=== PATIENT | female | born 1995 | race Caucasian/White ===

== ENCOUNTER 2021-07-28 16:55 | Emergency (ER) | payer OTHER, SELFPAY ==
--- NOTE | ~2021-07-28 | CT_ITS ---
EXAMINATION: CT ABDOMEN AND PELVIS WITH CONTRAST CLINICAL INFORMATION: Right lower quadrant pain. Rule out appendicitis. COMPARISON: None TECHNIQUE: Multidetector volumetric images were obtained from the superior aspect of the liver through the pubic symphysis following administration 85 mL of Omnipaque 350 intravenous contrast. Sagittal and coronal reformatted images were obtained on the technologist's workstation. Oral contrast: No This CT examination was performed using dose optimization techniques as appropriate, variously including the following: *Automated exposure control *Adjustment of mA and/or kV according to patient size (this includes techniques or standardized protocols for targeted exams where dose is matched to indication/reason for exam; i.e. extremities or head) *Use of iterative reconstruction technique DLP: 451 mGy-cm FINDINGS: LUNG BASES: The the lung bases are clear. LIVER, GALLBLADDER, AND BILIARY TREE: The liver is normal in size, shape, and attenuation. There is punctate 4 mm hypodensity in the right hepatic lobe. No additional lesions seen. There is no intrahepatic ductal dilatation. The gallbladder is unremarkable with no evidence of radiopaque gallstones, gallbladder wall thickening, or obvious pericholecystic inflammatory changes. PANCREAS: Unremarkable. SPLEEN: Unremarkable. ADRENAL GLANDS: Unremarkable. KIDNEYS AND URETERS: Both kidneys are normal size, shape and position. No radiopaque renal calculi, enhancing renal mass or hydronephrosis. No cysts seen either. BLADDER: The bladder is nondistended with mild wall thickening. GASTROINTESTINAL TRACT: There is moderate scattered stool seen in the colon without distention. The small bowel loops are normal caliber. Appendix is normal caliber . ABDOMINAL WALL: No significant hernia is appreciated. LYMPH NODES: Normal. VASCULAR: Unremarkable. PELVIC VISCERA: There is minimal free fluid in the pelvis. The uterus is anteverted with an IUD located within the endometrial canal. There is no adnexal mass. OSSEOUS STRUCTURES: No lytic or sclerotic process seen. CT/CT abdomen pelvis w con IMPRESSION: Moderate constipation. No obstruction. Normal appendix. Small amount of physiological fluid in the cul-de-sac. No adnexal mass seen.
[2021-07-28 19:01] VITALS: BP 114/65; PULSE 114; RESP 18; TEMP 36.9; O2SAT 99; BMI 22.0
--- NOTE | 2021-07-28 19:52 | PC.NURSE ---
IV established, labs and UA obtained. Awaiting primary MD eval.
--- NOTE | 2021-07-28 19:53 | PC.NURSE ---
at bedside for primary eval.
[2021-07-28 19:55] LABS: MANUAL DIFF FLAG NO
[2021-07-28 19:57] LABS: Appearance Urine HAZY; Basophils Absolute Auto 0.1 X10*3/uL (0.0-0.2); Basophils Percent Auto 0.6 % (0-2); Color Urine YELLOW; Eosinophils Absolute Auto 0.3 X10*3/uL (0.0-0.4); Eosinophils Percent Auto 2.8 % (0-4); Glucose Urine UA NEG (NEG); Hematocrit 39.8 % (37-47); Hemoglobin 12.6 g/dl (12.0-16.0); Imm Gran Abs Auto 0.05 X10*3/uL (0.00-0.03); Imm Gran Pct Auto 0.6 % (0.0-0.4); Leukocyte Esterase Urine NEG (NEG); Lymphocytes Absolute Auto 1.4 X10*3/uL (1.2-4.9); Lymphocytes Percent Auto 15.8 % (20-40); Mean Corpuscular HGB Conc 31.7 g/dl (31.0-35.0); Mean Corpuscular Hemoglobin 24.7 pg (27.0-33.0); Mean Platelet Volume 10.1 fL (9.4-12.3); Monocytes Absolute Auto 0.5 X10*3/uL (0.1-1.2); Monocytes Percent Auto 5.8 % (2-11); Neutrophils Absolute Auto 6.6 X10*3/uL (2.0-8.3); Neutrophils Percent Auto 74.4 % (45-73); Nitrite Urine NEG (NEG); Platelet Count 264 X10*3/uL (160-400); Red Cell Distribution Width 14.6 % (11.0-16.0); Specific Gravity - Urine >= 1.030 (1.005-1.025); UACC Culture Trigger NO; Urine Blood 2+ (NEG); Urine Ketones 15 MG/DL (NEG); Urine Protein 2+ MG/DL (NEG-TRACE); White Blood Count 8.9 X10*3/uL (4.8-10.8)
--- NOTE | 2021-07-28 19:58 | ED.ABDPAIN ---
HPI - Abdominal Pain General Chief Complaint: Abdominal Pain Stated Complaint: Stomach pain fever vomiting Time Seen by Provider: 07/28/21 19:50 Source: patient Mode of arrival: ambulatory Limitations: no limitations History of Present Illness HPI narrative: Patient with 3 days of lower abdominal pain radiating to her flanks. Worse on right than left. Positive nausea and vomiting. No diarrhea. Positive dysuria described as burning. No prior history of similar issues. No obvious fevers. No prior abdominal surgeries Pain is moderate to severe Related Data Previous Rx's Medication Instructions Recorded ondansetron HCl 4 mg tablet 4 mg PO Q8H PRN #10 tab 07/28/21 (Zofran) Allergies Allergy/AdvReac Type Severity Reaction Status Date / Time No Known Allergies Allergy Verified 07/28/21 18:58 [No Known Allergies*] Review of Systems Constitutional: Denies fever(s) Cardiovascular: Denies dyspnea Respiratory: Denies dyspnea Gastrointestinal: Reports abdominal pain Comments: Positive dysuria and frequency Musculoskeletal: Reports no additional musculoskeletal complaints Physical Exam Vital Signs: Vital Signs: Last Vital Signs Temp 102 F H 07/28/21 20:00 Pulse 97 07/28/21 20:00 Resp 20 07/28/21 20:00 BP 91/46 L 07/28/21 20:00 Pulse Ox 100 07/28/21 20:00 Body Mass Index 22.0 Const: General: cooperative, healthy appearing, comfortable and no acute distress Resp: Other: No respiratory distress GI: Other: Tender across the low abdomen. Specifically most tender in the suprapubic and right lower quadrant area. No flank tenderness to percussion. No guarding or rebound. Skin: Other: Warm pink and dry Neuro: Other: Awake alert oriented Course Course Course Narrative: Lower abdominal pain Urinary tract infection Ovarian cyst Appendicitis Ovarian torsion less likely IV fluids IV Toradol 9:27 p.m.. Patient is feeling much better after medication. CT scan shows no evidence of appendicitis or other significant abnormality. Urinalysis is normal. Lab work is normal. Final diagnosis will be gastroenteritis with dehydration MDM - Abdominal Pain Lab Data Result diagrams: 07/28/21 19:50 07/28/21 19:50 Labs: Lab Results 07/28/21 07/28/21 07/28/21 Range/Units 19:50 19:50 19:50 WBC 8.9 (4.8-10.8) X10*3/uL RBC 5.10 (4.20-5.50) X10*6/uL Hgb 12.6 (12.0-16.0) g/dl Hct 39.8 (37-47) % MCV 78.0 L (80-98) fL MCH 24.7 L (27.0-33.0) pg MCHC 31.7 (31.0-35.0) g/dl RDW 14.6 (11.0-16.0) % Plt Count 264 (160-400) X10*3/uL MPV 10.1 (9.4-12.3) fL Immature Gran % (Auto) 0.6 H (0.0-0.4) % Neut % (Auto) 74.4 H (45-73) % Lymph % (Auto) 15.8 L (20-40) % Barren % (Auto) 5.8 (2-11) % Eos % (Auto) 2.8 (0-4) % Baso % (Auto) 0.6 (0-2) % Lymph # (Auto) 1.4 (1.2-4.9) X10*3/uL Barren # (Auto) 0.5 (0.1-1.2) X10*3/uL Eos # (Auto) 0.3 (0.0-0.4) X10*3/uL Baso # (Auto) 0.1 (0.0-0.2) X10*3/uL Abs Immat Gran (auto) 0.05 H (0.00-0.03) X10*3/uL Absolute Neuts (auto) 6.6 (2.0-8.3) X10*3/uL Absolute Nucleated RBC 0.000 (0.0-0.012) X10*3/uL Nucleated RBC % (auto) 0.0 (0.0-0.2) /100WBC Sodium 136 (135-145) mmol/L Potassium 3.2 L (3.3-5.1) mmol/L Chloride 102 (96-108) mmol/L Carbon Dioxide 24 (22-29) mmol/L Anion Gap 13 (12-20) BUN 7 L (9-16) mg/dL Creatinine 0.90 (0.5-1.4) mg/dL Estim Creat Clear Calc 85.2 Estimated GFR > 60 Random Glucose 104 (60-115) mg/dL Calcium 8.8 (8.4-10.2) mg/dL Total Bilirubin 1.7 H (0.0-1.0) mg/dL AST 18 (5-31) U/L ALT 15 (0-31) U/L Alkaline Phosphatase 87 (39-117) U/L Total Protein 7.9 (6.5-8.0) g/dL Albumin 4.4 (3.5-5.0) g/dL Urine Color YELLOW Urine Appearance HAZY Urine pH 6.0 (5.0-8.0) Ur Specific [place] >= 1.030 H (1.005-1.025) Urine Protein 2+ H (NEG-TRACE) MG/DL Urine Glucose (UA) NEG (NEG) MG/DL Urine Ketones 15 (NEG) MG/DL Urine Blood 2+ H (NEG) Urine Nitrite NEG (NEG) Ur Leukocyte Esterase NEG (NEG) Urine RBC 0-2 (0) /HPF Urine WBC 0 (0-4) /HPF Ur Squamous Epith Cells 1+ /LPF Urine Bacteria 1+ /LPF Urine Mucus 1+ /LPF Urine Test (NEGATIVE) 07/28/21 Range/Units 19:50 WBC (4.8-10.8) X10*3/uL RBC (4.20-5.50) X10*6/uL Hgb (12.0-16.0) g/dl Hct (37-47) % MCV (80-98) fL MCH (27.0-33.0) pg MCHC (31.0-35.0) g/dl RDW (11.0-16.0) % Plt Count (160-400) X10*3/uL MPV (9.4-12.3) fL Immature Gran % (Auto) (0.0-0.4) % Neut % (Auto) (45-73) % Lymph % (Auto) (20-40) % Barren % (Auto) (2-11) % Eos % (Auto) (0-4) % Baso % (Auto) (0-2) % Lymph # (Auto) (1.2-4.9) X10*3/uL Barren # (Auto) (0.1-1.2) X10*3/uL Eos # (Auto) (0.0-0.4) X10*3/uL Baso # (Auto) (0.0-0.2) X10*3/uL Abs Immat Gran (auto) (0.00-0.03) X10*3/uL Absolute Neuts (auto) (2.0-8.3) X10*3/uL Absolute Nucleated RBC (0.0-0.012) X10*3/uL Nucleated RBC % (auto) (0.0-0.2) /100WBC Sodium (135-145) mmol/L Potassium (3.3-5.1) mmol/L Chloride (96-108) mmol/L Carbon Dioxide (22-29) mmol/L Anion Gap (12-20) BUN (9-16) mg/dL Creatinine (0.5-1.4) mg/dL Estim Creat Clear Calc Estimated GFR Random Glucose (60-115) mg/dL Calcium (8.4-10.2) mg/dL Total Bilirubin (0.0-1.0) mg/dL AST (5-31) U/L ALT (0-31) U/L Alkaline Phosphatase (39-117) U/L Total Protein (6.5-8.0) g/dL Albumin (3.5-5.0) g/dL Urine Color Urine Appearance Urine pH (5.0-8.0) Ur Specific [place] (1.005-1.025) Urine Protein (NEG-TRACE) MG/DL Urine Glucose (UA) (NEG) MG/DL Urine Ketones (NEG) MG/DL Urine Blood (NEG) Urine Nitrite (NEG) Ur Leukocyte Esterase (NEG) Urine RBC (0) /HPF Urine WBC (0-4) /HPF Ur Squamous Epith Cells /LPF Urine Bacteria /LPF Urine Mucus /LPF Urine Test NEGATIVE (NEGATIVE) Discharge Plan Discharge Clinical Impression: Gastroenteritis, Acute dehydration Patient Disposition: Home, Self-Care Instructions: Dehydration (ED), Gastroenteritis (ED) Additional Instructions: Drink plenty of liquids. Zofran is for nausea Prescriptions: New ondansetron HCl [Zofran] 4 mg tablet 4 mg PO Q8H PRN (Reason: nausea and vomiting) Qty: 10 RF: 0 PMFSH Past Medical History Medical History (Updated 07/28/21 @ 21:29 by Vicente Calzada MD) Asthma Social History Social History Advance Directives: No Advance Directives Information Provided: Yes
[2021-07-28 19:59] LABS: UPreg QC Valid YES; Urine Pregnancy NEGATIVE (NEGATIVE)
[2021-07-28 20:00] VITALS: BP 91/46; PULSE 97; RESP 20; TEMP 38.8; O2SAT 100
[2021-07-28 20:04] LABS: Bacteria Urine 1+ /LPF; Mucus Urine 1+ /LPF; RBC Urine 0-2 /HPF (0); Squamous Epithelial Cell Urine 1+ /LPF; WBC Urine 0 /HPF (0-4)
[2021-07-28] MEDS: 0.9 % Sodium Chloride 1,000 ML 999 ML IV (20:08)
[2021-07-28] MEDS: Ketorolac Tromethamine 15 MG/ML VIAL 30 MG IVPUSH (20:09)
--- NOTE | 2021-07-28 20:11 | PC.NURSE ---
Pt medicated per MAR.
[2021-07-28 20:13] LABS: Alanine Aminotransferase 15 U/L (0-31); Albumin Level 4.4 g/dL (3.5-5.0); Alkaline Phosphatase 87 U/L (39-117); Anion Gap 13 (12-20); Aspartate Amino Transferase 18 U/L (5-31); Bilirubin Total 1.7 mg/dL (0.0-1.0); Blood Urea Nitrogen 7 mg/dL (9-16); Calcium 8.8 mg/dL (8.4-10.2); Carbon Dioxide 24 mmol/L (22-29); Chloride 102 mmol/L (96-108); Creatinine Clr Calc Pharmacy 85.2; Estimated Glomerular Filt Rate > 60; Glucose Random 104 mg/dL (60-115); Potassium 3.2 mmol/L (3.3-5.1); Sodium 136 mmol/L (135-145); Total Protein 7.9 g/dL (6.5-8.0)
--- NOTE | 2021-07-28 20:47 | PC.NURSE ---
Off to CT on hospital bed. Plan for medicated admin upon return.
[2021-07-28] MEDS: iohexoL 350 MG/ML 100 ML INFUS..BTL 85 ML IV (20:54)
[2021-07-28] MEDS: ondansetron HCL 4 MG/2 ML VIAL IVPUSH (20:55)
--- NOTE | 2021-07-28 20:55 | PC.NURSE ---
Returns from CT. Medicated per JAN.
== END 2021-07-28 21:53 | disposition home or self-care (01) ==
PROVIDERS: Emergency Provider Emergency Medicine
DX: K52.9 Noninfective gastroenteritis and colitis, unspecified (principal); E86.0 Dehydration; Z79.899 Other long term (current) drug therapy
CPT/HCPCS: 36415; 74177; 80053; 81001; 81025; 85025; 96361; 96374; 96375; 99284; J1885; J2405; Q9967

== ENCOUNTER → 2022-07-22 09:12 | Outpatient (BNVA) | payer SELFPAY | PROVIDERS: Visit Provider Internal Medicine | DX: Z11.1 Encounter for screening for respiratory tuberculosis (principal) ==